=== PATIENT | male | born 1955 | race Caucasian/White ===

== ENCOUNTER 2018-10-15 11:14 | Observation (INO) ==
[2018-10-15 11:18] VITALS: TEMP 98
--- NOTE | 2018-10-15 11:33 | ED ---
HPI General Chief Complaint: Chest Pain Stated Complaint: Chest Pain Time Seen by Provider: 10/15/18 11:18 Source: patient and RN notes reviewed Mode of arrival: ambulatory Limitations: no limitations History of Present Illness HPI narrative: 62-year-old male presents to the emergency department for evaluation of midsternal chest pain that started this morning and lasted for approximately a minute. Patient states he ate a protein bar and laid down and then he felt the pain which was characterized chest tightness to the midsternal chest. He denies any radiation of the pain. He states he has had this intermittently over the past year. The last time he had it was over a month ago. Patient is here from [place]. He states he talked to his primary care physician about these symptoms and an outpatient stress test was ordered which she has not yet had done. Patient does report a history of reflux and is on omeprazole. 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 His last stress test was when he was 50 years old, 12 years ago. Patient states he drinks occasionally. He denies any tobacco use or drug use. He states his dad had quadruple bypass at age 68. The pain was 7/10 when he had it. He has no pain at this time. He has not had any aspirin. Moderate severity. MD complaint: Reports chest pain STEMI Alert: No Onset (ago): hour(s) Duration: now resolved Onset: during rest Pain location: Reports substernal Severity: moderate Severity scale (1-10): 7 Quality: Reports tightness Pain radiation: Reports none Relieving factors: nothing Exacerbating factors: nothing Associated symptoms: Denies nausea, vomiting, diaphoresis, dyspnea, sense of impending doom, syncope, palpitations, fever, cough and leg swelling Treatments prior to arrival chest pain: Reports none Related Data Home Medications Medication Instructions Recorded Confirmed omeprazole 40 mg PO DAILY 10/15/18 10/15/18 Allergies Allergy/AdvReac Type Severity Reaction Status Date / Time No Known Allergies Allergy Verified 10/15/18 11:27 Review of Systems ROS: all other systems reviewed are negative [facility] Medical History Medical History GERD (gastroesophageal reflux disease) (Acute) Ulnar nerve entrapment at elbow (Acute) Surgical History Surgical History Hx of arthroscopic knee surgery (Acute) Social History Social History Substance History: No History of Abuse Second Hand Smoke Exposure: No Smoking Status: Never smoker How Often Do You Have a Drink Containing Alcohol: 2 to 4 times a month Recent Travel in [facility] within the Last 8 Weeks: Yes Recent Out of Country Travel within the Last 8 Weeks: No Immunization History Tetanus Immunization: Unsure Exam Narrative Exam Narrative: GENERAL: Well-nourished, well-developed male patient, afebrile SKIN: Focused skin assessment warm/dry. HEAD: Normocephalic. Atraumatic EYES: No scleral icterus. No injection or drainage. NECK: Supple, trachea midline. No JVD or lymphadenopathy. CARDIOVASCULAR: Regular rate and rhythm without murmurs, gallops, or rubs. Bilateral radial and pedal pulses are 2+ RESPIRATORY: Breath sounds equal bilaterally. No accessory muscle use. Lung sounds are clear to auscultation GASTROINTESTINAL: Abdomen soft, non-tender, nondistended. MUSCULOSKELETAL: No cyanosis, or edema. BACK: Nontender without obvious deformity. No CVA tenderness. Course Initial Documented Vital Signs Temperature 98.0 F 10/15/18 11:16 Pulse Rate 73 10/15/18 11:16 Respiratory Rate 15 10/15/18 11:16 Blood Pressure 163/85 H 10/15/18 11:16 Pulse Oximetry 98 10/15/18 11:16 Last Documented Vital Signs Temperature 98.0 F 10/15/18 11:16 Pulse Rate 58 L 10/15/18 14:00 Respiratory Rate 15 10/15/18 14:00 Blood Pressure 105/69 10/15/18 14:00 Pulse Oximetry 97 10/15/18 14:00 Medical Decision Making JOSE Attestation JOSE supervised visit: Yes Attestation: I, Dr. Segura, have reviewed the advance practice practitioner's documentation and am in agreement, met with the patient face to face, made the diagnosis, and the medical decision making was done by me. *My assessment and Findings: Chest pain MDM Narrative Medical decision making narrative: 62-year-old male presents to the emergency department for evaluation of midsternal chest pain. Patient had an outpatient stress test ordered by his primary care physician in [place], Dr. Dove, but has not yet had it. EKG shows sinus rhythm, heart rate 72, no acute ST changes. CBC, CMP, CK, troponin, lipase are ordered and pending. Chest x-ray is ordered and pending. Patient is given aspirin 162 mg p.o. CBC shows no acute abnormality. CMP shows no acute abnormality. CK is 215. Troponin is less than 0.02. Lipase is 130. Chest x-ray shows no acute cardiopulmonary disease. Patient agrees to admission for the chest pain center to rule out ACS. Medical Screen Exam Complete: Yes Emergency Medical Condition: Yes Differential Diagnosis Differential Diagnosis: ACS vs. pneumonia vs. pneumothorax versus strain versus chest wall pain versus reflux versus PE Medical Records Medical records reviewed: Yes I reviewed the patient's medical records. Lab Data Result diagrams: 10/15/18 11:35 10/15/18 11:35 Lab Results 10/15/18 10/15/18 Range/Units 11:35 11:35 WBC 3.4 L (4.0-11.0) th/mm3 RBC 4.20 L (4.50-5.90) mil/mm3 Hgb 13.2 (13.0-17.0) gm/dL Hct 38.6 L (39.0-51.0) % MCV 91.7 (80.0-100.0) fL MCH 31.3 (27.0-34.0) pg MCHC 34.1 (32.0-36.0) % RDW 13.8 (11.6-17.2) % Plt Count 218 (150-450) th/mm3 MPV 8.7 (7.0-11.0) fL Neut % (Auto) 60.1 (16.0-70.0) % Lymph % (Auto) 25.1 (9.0-44.0) % [place] % (Auto) 9.6 H (0.0-8.0) % Eos % (Auto) 2.9 (0.0-4.0) % Baso % (Auto) 2.3 H (0.0-2.0) % Neut # (Auto) 2.1 (1.8-7.7) th/mm3 Lymph # (Auto) 0.9 L (1.0-4.8) th/mm3 [place] # (Auto) 0.3 (0.0-0.9) th/mm3 Eos # (Auto) 0.1 (0.0-0.4) th/mm3 Baso # (Auto) 0.1 (0.0-0.2) th/mm3 WBC Differential . Differential Comment Auto diff final Sodium 141 (136-145) meq/L Potassium 4.4 (3.5-5.1) meq/L Chloride 108 H (98-107) meq/L Carbon Dioxide 30.0 (21.0-32.0) meq/L Anion Gap 3 L (5-15) meq/L BUN 14 (7-18) mg/dL Creatinine 1.03 (0.60-1.30) mg/dL Estimated GFR 73 L (>89) mL/min Random Glucose 99 (74-106) mg/dL Calcium 8.3 L (8.5-10.1) mg/dL Total Bilirubin 0.5 (0.2-1.0) mg/dL AST 15 (15-37) U/L ALT 20 (12-78) U/L Alkaline Phosphatase 80 (45-117) U/L Total Creatine Kinase 215 (39-308) U/L CK-MB (CK-2) 2.8 (0.5-3.6) ng/mL Troponin I Less than 0.02 L (0.02-0.05) ng/mL Total Protein 7.0 (6.4-8.2) g/dL Albumin 3.8 (3.4-5.0) g/dL Lipase 130 (73-393) U/L Imaging Data Radiologist's impression: Chest X-Ray 10/15/18 11:27 CONCLUSION: No acute cardiopulmonary disease Discharge Plan Discharge Disposition Patient Disposition: ED Admit(ED Internal Use Only) Discharge Condition Condition: Stable Discharge Order Discharge Orders: Discharge Order (Routine); Ordered 10/15/18 Ordered By: Vinny Fry ED Use Only Admit Order (Routine); Ordered 10/15/18 Ordered By: Erica Cruz Discharge Details Diagnosis: Chest pain Physicians Team ED Provider: Aj Segura ED Midlevel Provider: Erica Cruz Primary Care Provider: UNKNOWN, Attending Provider: Gwyn Wright Other Providers: [facility],Insurance Status ED Status: Left Department Discharge Information Discharge Date/Time: 10/15/18 14:21
--- NOTE | 2018-10-15 11:48 | XR ---
EXAM DATE: 10/15/2018 11:46 AM EST AGE/SEX: 62 years / Male INDICATIONS: Shortness of breath, chest pain. CLINICAL DATA: This is the patient's initial encounter. Patient reports that signs and symptoms have been present for 2 days and indicates a pain score of 8/10. MEDICAL/SURGICAL HISTORY: None. None. COMPARISON: No prior exams available for comparison. FINDINGS: A single AP view of the chest demonstrates the lungs to be symmetrically aerated without evidence of mass, infiltrate or effusion. The cardiomediastinal contours are unremarkable. Osseous structures a re intact. CONCLUSION: No acute cardiopulmonary disease Electronically signed by: Elliot Zaragoza MD Board Certified Radiologist 10/15/2018 11:47 AM EST
[2018-10-15 11:53] LABS: Baso # (Auto) 0.1 th/mm3 (0.0-0.2); Baso % (Auto) 2.3 % (0.0-2.0); Eos # (Auto) 0.1 th/mm3 (0.0-0.4); Eos % (Auto) 2.9 % (0.0-4.0); Hematocrit 38.6 % (39.0-51.0); Hemoglobin 13.2 gm/dL (13.0-17.0); Lymph # (Auto) 0.9 th/mm3 (1.0-4.8); Lymph % (Auto) 25.1 % (9.0-44.0); Mean Corpuscular HGB Conc 34.1 % (32.0-36.0); Mean Corpuscular Hemoglobin 31.3 pg (27.0-34.0); Mean Corpuscular Volume 91.7 fL (80.0-100.0); Mean Platelet Volume 8.7 fL (7.0-11.0); Mono # (Auto) 0.3 th/mm3 (0.0-0.9); Mono % (Auto) 9.6 % (0.0-8.0); Neut # (Auto) 2.1 th/mm3 (1.8-7.7); Neut % (Auto) 60.1 % (16.0-70.0); Platelet Count 218 th/mm3 (150-450); Red Cell Distribution Width 13.8 % (11.6-17.2); White Blood Count 3.4 th/mm3 (4.0-11.0)
[2018-10-15 12:15] LABS: Alanine Aminotransferase 20 U/L (12-78); Albumin 3.8 g/dL (3.4-5.0); Anion Gap 3 meq/L (5-15); Aspartate Aminotransferase 15 U/L (15-37); Blood Urea Nitrogen 14 mg/dL (7-18); Calcium 8.3 mg/dL (8.5-10.1); Chloride 108 meq/L (98-107); Glomerular Filtration Rate 73 mL/min (>89); Glucose,Random 99 mg/dL (74-106); Lipase 130 U/L (73-393); Potassium 4.4 meq/L (3.5-5.1); Sodium 141 meq/L (136-145)
[2018-10-15 12:19] LABS: Alkaline Phosphatase 80 U/L (45-117); Creatine Kinase 215 U/L (39-308)
[2018-10-15 12:31] LABS: Creatine Kinase MB 2.8 ng/mL (0.5-3.6)
--- NOTE | 2018-10-15 13:37 | P.HPCA ---
History of Present Illness Primary Care Physician: UNKNOWN Chief Complaint: Chest pain History of Present Illness: This is a 62-year-old male without history of hypertension, hyperlipidemia, diabetes, or CAD that presents to ED via private vehicle with complaint of intermittent chest discomforts for a year. States it may happen about once a month. 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 He rides a bicycle 40 miles at a time, for his 60th birthday he rode [employer]. States he goes on the treadmill and does other type of exercises on a regular basis as well. Again never has discomfort while doing these activities. States the discomforts have been very random. Describes a central chest tightness that lasts less than a minute. No associated symptoms and discomfort does not radiate. He saw his primary care physician in [place] for this a couple months ago and is being scheduled to have a stress test. He is here for the races and happened to seen an advertisement for our chest pain center and decided to be evaluated. He states he did have an episode this morning while getting ready again lasting less than a minute. It was a same type of discomfort that he has been having. Denies recent illnesses. Denies fevers or chills. Family history: States his father had a CABG at age 68. Past medical history: GERD. Denies hypertension, hyperlipidemia, diabetes, and CAD. Social history: Non-smoker. - Diagnosis (1) Atypical chest pain Review of Systems General: Patient denies fevers, chills, and recent travel. HEENT: Patient denies headache, sore throat, difficulty swallowing. Cardiovascular: Has the chest discomfort as mentioned above. Denies sensation of heart beating rapidly or irregularly. No syncope. Respiratory: Denies shortness of breath or inspirational chest discomfort. Denies coughing wheezing or hemoptysis. GI: Patient denies nausea, vomiting, diarrhea, abdominal pain, bloody stools. Musculoskeletal: Patient denies joint pain or edema. Denies calf pain or edema. Neurovascular: Patient denies numbness, tingling, weakness in extremities. Denies headache. Endocrine: Denies polyuria and polydipsia. Hematologic: Denies easy bruising. Skin: Denies rash or itching. PMFSH - History History Provided By: Patient - Medical History Medical History: Medical History (Last Reviewed 10/15/18 @ 11:30 by MICHAEL Aaron) GERD (gastroesophageal reflux disease) Ulnar nerve entrapment at elbow - Surgical History Surgical History: Surgical History (Last Reviewed 10/15/18 @ 11:30 by MICHAEL Aaron) Hx of arthroscopic knee surgery - Tobacco History Second Hand Smoke Exposure: No Tobacco Use In Past 30 Days: No Smoking Status: Never smoker - Alcohol History How Often Do You Have a Drink Containing Alcohol: 2 to 4 times a month - Substance Use History Substance History: No History of Abuse - Travel History Recent Travel in the [place] Within the Last 8 Weeks: Yes Recent Travel Out of the Country Within the Last 8 Weeks: No - Immunization History Tetanus Immunization: Unsure Medications and Allergies Active Medications: Active Medications Sodium Chloride (Ns Flush) 2 ml IV.FLUSH UNSCH PRN PRN Reason: FLUSH AFTER USING IV ACCESS Last Admin: 10/15/18 12:17 Dose: 2 ml Sodium Chloride (Ns Flush) 2 ml IV.FLUSH BID STANLEY Sodium Chloride (Ns Flush) 2 ml IV.FLUSH PRN PRN PRN Reason: FLUSH AFTER USING IV ACCESS Allergies Allergy/AdvReac Type Severity Reaction Status Date / Time No Known Allergies Allergy Verified 10/15/18 11:27 Home Medications Medication Instructions Recorded Confirmed Type omeprazole 40 mg PO DAILY 10/15/18 10/15/18 History Exam Vital signs: Vital Signs 10/15/18 11:16 10/15/18 11:23 10/15/18 11:27 Temperature 98.0 F Pulse Rate 73 72 Respiratory Rate 15 18 Blood Pressure 163/85 H 135/85 Pulse Oximetry 98 99 98 10/15/18 12:00 10/15/18 12:17 Temperature Pulse Rate 65 Respiratory Rate 18 Blood Pressure 114/73 Pulse Oximetry 96 96 Intake & Output 10/14/18 10/15/18 10/15/18 18:59 06:59 18:59 Weight 86.183 kg Narrative: GENERAL: This is a well-nourished, well-developed patient, in no apparent distress. Patient speaks in clear complete sentences. Patient is pleasant. HEENT: Head is atraumatic and normocephalic. Neck is supple without lymphadenopathy and trachea is midline. No JVD or carotid bruits. CARDIOVASCULAR: Regular rate and rhythm without murmurs, gallops, or rubs. RESPIRATORY: Clear to auscultation. Breath sounds equal bilaterally. No wheezes , rales, or rhonchi. Chest wall is nontender. No use of accessory muscles. GASTROINTESTINAL: Abdomen is nontender, nondistended. Abdomen soft. No obvious pulsatile mass or bruit. No CVA tenderness. Strong femoral pulses bilaterally. Normal bowel sounds in all quadrants. MUSCULOSKELETAL: Patient is moving upper and lower extremities freely. No calf tenderness or edema, no Homans sign. Strong pulses in upper and lower extremities. NEUROLOGICAL: Patient is alert and oriented. Cranial nerves 2-12 are grossly intact. No focal deficits and speech is clear. SKIN: No rash and turgor is normal. Results 10/15/18 11:35 10/15/18 11:35 Cardiac Enzymes 10/15/18 Range/Units 11:35 AST 15 (15-37) U/L CK-MB (CK-2) 2.8 (0.5-3.6) ng/mL Troponin I Less than 0.02 L (0.02-0.05) ng/mL CBC 10/15/18 Range/Units 11:35 WBC 3.4 L (4.0-11.0) th/mm3 RBC 4.20 L (4.50-5.90) mil/mm3 Hgb 13.2 (13.0-17.0) gm/dL Hct 38.6 L (39.0-51.0) % Plt Count 218 (150-450) th/mm3 Neut # (Auto) 2.1 (1.8-7.7) th/mm3 Lymph # (Auto) 0.9 L (1.0-4.8) th/mm3 [place] # (Auto) 0.3 (0.0-0.9) th/mm3 Eos # (Auto) 0.1 (0.0-0.4) th/mm3 Baso # (Auto) 0.1 (0.0-0.2) th/mm3 Comprehensive Metabolic Panel 10/15/18 Range/Units 11:35 Sodium 141 (136-145) meq/L Potassium 4.4 (3.5-5.1) meq/L Chloride 108 H (98-107) meq/L Carbon Dioxide 30.0 (21.0-32.0) meq/L BUN 14 (7-18) mg/dL Creatinine 1.03 (0.60-1.30) mg/dL Calcium 8.3 L (8.5-10.1) mg/dL AST 15 (15-37) U/L ALT 20 (12-78) U/L Alkaline Phosphatase 80 (45-117) U/L Total Protein 7.0 (6.4-8.2) g/dL Albumin 3.8 (3.4-5.0) g/dL Intake and Output 10/14/18 10/15/18 10/15/18 22:59 06:59 14:59 Other: Weight 86.183 kg Patient Weight 10/16/18 06:59 Weight 86.183 kg - Imaging and Cardiology Imaging: Impressions Chest X-Ray 10/15/18 11:27 CONCLUSION: No acute cardiopulmonary disease EKG interpretations - EKG EKG shows: sinus rhythm (Initial EKG is sinus rhythm without significant ST segment depressions or elevations.) Caprini VTE Risk Assessment Caprini VTE Risk Assessment: Moderate/High Risk (score >= 2) Caprini Risk Assessment Model: Point Value = 1 Point Value = 2 Point Value = 3 Point Value = 5 Age 41-60 Minor surgery BMI > 25 kg/m2 Swollen legs Varicose veins or History of unexplained or recurrent spontaneous Oral contraceptives or hormone replacement Sepsis (< 1 month) Serious lung disease, including pneumonia (< 1 month) Abnormal pulmonary function Acute myocardial infarction Congestive heart failure (< 1 month) History of inflammatory bowel disease Medical patient at bed rest Age 61-74 Arthroscopic surgery Major open surgery (> 45 min) Laparoscopic surgery (> 45 min) Malignancy Confined to bed (> 72 hours) Immobilizing plaster cast Central venous access Age >= 75 History of VTE Family history of VTE Factor V Leiden Prothrombin [id number] Lupus anticoagulant Anticardiolipin antibodies Elevated serum homocysteine Heparin-induced thrombocytopenia Other congenital or acquired thrombophilia Stroke (< 1 month) Elective arthroplasty Hip, pelvis, or leg fracture Acute spinal cord injury (< 1 month) Prophylaxis Regimen: Total Risk Factor Score Risk Level Prophylaxis Regimen 0-1 Low Early ambulation 2 Moderate Order ONE of the following: *Sequential Compression Device (SCD) *Heparin 5000 units SQ BID 3-4 Higher Order ONE of the following medications: *Heparin 5000 units SQ TID *Enoxaparin/Lovenox 40 mg SQ daily (WT < 150 kg, CrCl > 30 mL/min) *Enoxaparin/Lovenox 30 mg SQ daily (WT < 150 kg, CrCl > 10-29 mL/min) *Enoxaparin/Lovenox 30 mg SQ BID (WT < 150 kg, CrCl > 30 mL/min) AND/OR *Sequential Compression Device (SCD) 5 or more Highest Order ONE of the following medications: *Heparin 5000 units SQ TID (Preferred with Epidurals) *Enoxaparin/Lovenox 40 mg SQ daily (WT < 150 kg, CrCl > 30 mL/min) *Enoxaparin/Lovenox 30 mg SQ daily (WT < 150 kg, CrCl > 10-29 mL/min) *Enoxaparin/Lovenox 30 mg SQ BID (WT < 150 kg, CrCl > 30 mL/min) AND *Sequential Compression Device (SCD) Assessment and Plan - Assessment (1) Atypical chest pain Code(s): R07.89 - Other chest pain Status: Acute - Plan * Atypical chest pain: Patient's first troponin and EKG are okay. He has been evaluated by Dr. Wright and will undergo a Wilmar protocol ETT. He will be discharged home if stress test is nonischemic with instructions to follow-up with his PCP. Return to ED for interval issues. Patient is stable at this time. He is agreeable to this plan.
--- NOTE | 2018-10-15 13:43 | P.PNCA ---
Subjective Interval history: Very pleasant 62-year-old gentleman visiting in this area for the races presented to the emergency room with complaints of intermittent chest pain. In essence this is been a discomfort that he has had off and on over a year or more. Previously attributed to GERD but since he saw we have a chest pain center he thought he would be reevaluated while here. 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 He has no discomfort with exercise whatsoever. Documentation is entered is appropriate and accurate further enumeration of his presentation is not necessary. He has a negative EKG and enzymes, is obviously very fit, and is hopeful to be able to get out in time to get to the race. As result he will be exercised early and if entirely negative discharged further follow-up when he returns to [place]. Medications and Allergies Active Medications: Active Medications Sodium Chloride (Ns Flush) 2 ml IV.FLUSH UNSCH PRN PRN Reason: FLUSH AFTER USING IV ACCESS Last Admin: 10/15/18 12:17 Dose: 2 ml Sodium Chloride (Ns Flush) 2 ml IV.FLUSH BID STANLEY Sodium Chloride (Ns Flush) 2 ml IV.FLUSH PRN PRN PRN Reason: FLUSH AFTER USING IV ACCESS Allergies Allergy/AdvReac Type Severity Reaction Status Date / Time No Known Allergies Allergy Verified 10/15/18 11:27 Home Medications Medication Instructions Recorded Confirmed Type omeprazole 40 mg PO DAILY 10/15/18 10/15/18 History Physical Exam Vital signs: Vital Signs 10/15/18 11:16 10/15/18 11:23 10/15/18 11:27 Temperature 98.0 F Pulse Rate 73 72 Respiratory Rate 15 18 Blood Pressure 163/85 H 135/85 Pulse Oximetry 98 99 98 10/15/18 12:00 10/15/18 12:17 Temperature Pulse Rate 65 Respiratory Rate 18 Blood Pressure 114/73 Pulse Oximetry 96 96 Intake & Output 10/14/18 10/15/18 10/15/18 18:59 06:59 18:59 Weight 86.183 kg Narrative: Physical exam is as documented was repeated by myself Chest clear to auscultation with no rales wheezes or rhonchi Cardiovascular the rhythm is regular there are no gallops rubs or murmurs Results 10/15/18 11:35 10/15/18 11:35 Cardiac Enzymes 10/15/18 Range/Units 11:35 AST 15 (15-37) U/L CK-MB (CK-2) 2.8 (0.5-3.6) ng/mL Troponin I Less than 0.02 L (0.02-0.05) ng/mL CBC 10/15/18 Range/Units 11:35 WBC 3.4 L (4.0-11.0) th/mm3 RBC 4.20 L (4.50-5.90) mil/mm3 Hgb 13.2 (13.0-17.0) gm/dL Hct 38.6 L (39.0-51.0) % Plt Count 218 (150-450) th/mm3 Neut # (Auto) 2.1 (1.8-7.7) th/mm3 Lymph # (Auto) 0.9 L (1.0-4.8) th/mm3 [place] # (Auto) 0.3 (0.0-0.9) th/mm3 Eos # (Auto) 0.1 (0.0-0.4) th/mm3 Baso # (Auto) 0.1 (0.0-0.2) th/mm3 Comprehensive Metabolic Panel 10/15/18 Range/Units 11:35 Sodium 141 (136-145) meq/L Potassium 4.4 (3.5-5.1) meq/L Chloride 108 H (98-107) meq/L Carbon Dioxide 30.0 (21.0-32.0) meq/L BUN 14 (7-18) mg/dL Creatinine 1.03 (0.60-1.30) mg/dL Calcium 8.3 L (8.5-10.1) mg/dL AST 15 (15-37) U/L ALT 20 (12-78) U/L Alkaline Phosphatase 80 (45-117) U/L Total Protein 7.0 (6.4-8.2) g/dL Albumin 3.8 (3.4-5.0) g/dL Intake and Output 10/14/18 10/15/18 10/15/18 22:59 06:59 14:59 Other: Weight 86.183 kg Patient Weight 10/16/18 06:59 Weight 86.183 kg - Imaging and Cardiology Imaging: Impressions Chest X-Ray 10/15/18 11:27 CONCLUSION: No acute cardiopulmonary disease Assessment and Plan - Assessment (1) Atypical chest pain Code(s): R07.89 - Other chest pain Status: Acute - Plan * Atypical chest pain: Patient's first troponin and EKG are okay. He has been evaluated by Dr. Wright and will undergo a [place] protocol ETT. He will be discharged home if stress test is nonischemic with instructions to follow-up with his PCP. Return to ED for interval issues. Patient is stable at this time. He is agreeable to this plan.
--- NOTE | 2018-10-15 14:06 | TR ---
Date Performed: 10/15/2018 Time Performed: 13:34:41 DOCTOR: Gwyn Wright DRUG LIST: CLINICAL HISTORY: REASON FOR TEST: Chest pain REASON FOR ENDING: OBSERVATION: CONCLUSION: MARCIN PROTOCOL ETT. NO CP OR SOB. Maximum XF=830 % Max HR Glzbtkpi=143.0% Total Exer cise Time=10:00 COMMENTS: Patient exercised for a full 10 minutes reaching 100% of his predicted heart rate with a normal pressure rate response to exercise. He had no symptoms whatsoever and a normal recovery. He developed mild J-point depression but this was associated with rapidly upsloping ST segments which were not diagnostic of ischemia. High exercise capacity with no symptoms and no EKG changes of isch emia representing a low probability of clinically significant ischemic heart disease as a cause of cu rrent presentation.
[2018-10-15 14:23] VITALS: BP 105/69; PULSE 58; RESP 15; O2SAT 97
--- NOTE | 2018-10-16 15:32 | ECG ---
Date Performed: 10/15/2018 Time Performed: 11:23:47 PTAGE: 62 years EKG: Sinus rhythm NORMAL ECG NO PREVIOUS TRACING DOCTOR: Gwyn Wright Interpretating Date/Time 10/16/2018 15:30:51
== END 2018-10-15 14:21 | disposition home or self-care (01) ==
LOC: NEDA 11:14 → NEPC 11:14 → NEDA 14:21
PROVIDERS: ADMIT Internal Medicine Interventional Cardiology; ATTEND Internal Medicine Interventional Cardiology
DX: Z79.899 Other long term (current) drug therapy; R06.02 Shortness of breath; K21.9 Gastro-esophageal reflux disease without esophagitis; R07.89 Other chest pain
CPT/HCPCS: G0378